=== PATIENT | female | born 2000 | race Caucasian/White ===

== ENCOUNTER 2020-09-12 06:15 | Emergency (ER) | payer BC ==
[2020-09-12] MEDS ORDERED: Sodium Chloride 0.9% 1,000 ML IV SCH (06:30)
--- NOTE | 2020-09-12 06:42 | EDM.PDOC ---
<Roque Alanis - Last Filed: 09/12/20 07:34> ED HPI GENERAL MEDICAL PROBLEM - General Chief Complaint: Drug or Alcohol Abuse Stated Complaint: [facility] Time Seen by Provider: 09/12/20 06:20 Source of Information: Reports: Patient, EMS History Limitations: Reports: No Limitations - History of Present Illness INITIAL COMMENTS - FREE TEXT/NARRATIVE: Ms. Collado is a very pleasant 20-year-old woman who is now brought to the ED by EMS after falling unconscious after drinking excessive alcohol and snorting what she thought was cocaine. She states that she started drinking alcohol around 20:00 last night, ending around 5:00 this morning, and that she did 2 lines of what she thought was cocaine sometime around 4:00 to 4:30 this morning. She states that she and her boyfriend acquired the cocaine from a neighbor, and that while she has done cocaine in the past, she has not done cocaine acquired from this neighbor previously. Sometime around 5:00 this morning, the patient was found by her boyfriend to be unconscious. The boyfriend apparently performed bystander CPR for 1 to 2 minutes before EMS arrived. When they arrived, they found the patient to be agonally breathing with a thready pulse and pinpoint pupils. They gave her 2 mg of IV Narcan, after which the patient woke up. She has remained awake since. The patient denies knowingly ingesting any other substances besides alcohol and cocaine. Here in the ED, the patient's initial BP is found to be slightly elevated 130/99, with tachycardia of 114 bpm. She is afebrile, saturating 99% on room air. The patient states that she vomited Sunday morning, 09/10/2020, that she believes was due to a hangover. Prior to Sunday, however, the patient denies having a recent fever, chills, sore throat, ear pain, nasal or sinus congestion, cough, dyspnea, chest pain, palpitations, nausea, vomiting, constipation, diarrhea, abdominal pain, urinary symptoms, recent weight gain or weight loss, recent bloody bowel movements or black bowel movements, recent joint aches, headaches, or rashes. The patient does not have a PCP. She states that she has already received an influenza vaccine this season. Back Pain Score (Numeric/FACES): 3 - Related Data Allergies Allergy/AdvReac Type Severity Reaction Status Date / Time tide. Allergy Rash Uncoded 09/12/20 06:23 Home Meds: Home Meds Iud. 09/12/20 [History] Past Medical History Musculoskeletal History: Reports: Back Pain, Chronic (scoliosis) Endocrine/Metabolic History: Reports: Obesity/BMI 30+ - Past Surgical History HEENT Surgical History: Reports: Oral Surgery (dental extractions) Social & Family History - Tobacco Use Tobacco Use Status *Q: Never Tobacco User Tobacco Use Within Last Twelve Months: Vaping (Vapes nicotine x 2019) - Alcohol Use Alcohol Use History: Yes Alcohol Use Frequency: Socially (to excess on occasion) - Recreational Drug Use Recreational Drug Use: Yes Drug Use in Last 12 Months: Yes Recreational Drug Type: Reports: Cocaine (snorts rarely), Marijuana/Hashish (last Feb 2020) - Living Situation & Occupation Living situation: Reports: Single, with Significant Other (Boyfriend) 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 ED EXAM, GENERAL - Physical Exam Exam: See Below Exam Limited By: No Limitations General Appearance: Alert, WD/WN, No Apparent Distress Eye Exam: Bilateral Eye: EOMI, Normal Inspection Ears: Normal External Exam, Hearing Grossly Normal Nose: Normal Inspection Throat/Mouth: Normal Inspection, Normal Lips, Normal Voice, No Airway Compromise Head: Atraumatic, Normocephalic Neck: Normal Inspection, Full Range of Motion Respiratory/Chest: No Respiratory Distress, Lungs Clear, Normal Breath Sounds, No Accessory Muscle Use Cardiovascular: Normal Peripheral Pulses, No Edema, No Gallop, No JVD, No Murmur, No Rub, Tachycardia (regular) Peripheral Pulses: 3+: Radial (L), Radial (R) GI/Abdominal: Normal Bowel Sounds, Soft, Non-Tender, No Organomegaly, No Distention, No Abnormal Bruit, No Mass Back Exam: Normal Inspection, Full Range of Motion, NT Extremities: Normal Inspection, Normal Range of Motion, No Pedal Edema, Normal Capillary Refill Neurological: Alert, Oriented, Normal Cognition, No Motor/Sensory Deficits Psychiatric: Normal Affect Skin Exam: Warm, Dry, Intact, Normal Color, No Rash #1 Interpretation EKG Date: 09/12/20 Time: 06:21 Rhythm: Other (Sinus tachycardia) Rate (Beats/Min): 110 [place]: Normal P-Wave: Present QRS: Normal ST-T: Normal QT: Normal Comparison: NA - No Prior EKG Course - Re-Assessments/Exams Free Text/Narrative Re-Assessment/Exam: 09/12/20 06:37 As above, the patient states that she drank excessively last night, then did a couple of lines of what she thought was cocaine between 4:00 and 4:30 this morning, after which she was found unresponsive with agonal breaths, thready pulse, and pinpoint pupils. Her boyfriend performed bystander CPR for 1 to 2 minutes prior to EMS arrival. EMS gave the patient 2 mg of IV Narcan, after which she woke up, and remained awake. The presumption by EMS was that the cocaine that she snorted was laced with fentanyl. At this time, she is fully awake, cooperative, and was able to answer all of my questions without any difficulty. She has no complaints, and her physical exam is unremarkable. I have ordered a work-up that includes numerous blood tests, a urine drug screen, a urine test, a chest x-ray, and an ECG. In the meantime, she will be given some IV fluid. I would like to keep her n.p.o. presently. 09/12/20 07:26 Two-view chest radiograph appears to be grossly normal. The cardiac silhouette is within normal limits. No pulmonary vascular congestion. No pleural effusions. No focal infiltrate. No pneumothorax. Formal read per the Radiologist pending. The patient's CMP is remarkable for an anion gap slightly elevated at 16.5, but with a bicarbonate normal at 25. She has hyperglycemia of 154, with the remainder of her CMP being unremarkable. Her magnesium level is within normal limits at 2.1. Her troponin is undetectably low. Her acetaminophen level is 0. Her salicylate level is within normal limits at 1.1. Her EtOH level is elevated at 0.11. The CBC has not yet resulted. A urine sample for the urine drug screen and urine test has not yet been collected. Case discussed with Dr. Crow, and care of the patient turned over to him at this time, for change of shift. Departure - Departure Disposition: Home, Self-Care 01 Clinical Impression: Alcohol intoxication Qualifiers: Complication of substance-induced condition: uncomplicated Qualified Code(s): F10.920 - Alcohol use, unspecified with intoxication, uncomplicated Opiate or related narcotic overdose Qualifiers: Encounter type: initial encounter Injury intent: accidental or unintentional Qualified Code(s): T40.601A - Poisoning by unspecified narcotics, accidental (unintentional), initial encounter - Discharge Information Instructions: Alcohol Intoxication, Opioid Overdose Referrals: PCP,None [Primary Care Provider] - Forms: ED Department Discharge Additional Instructions: Evaluation in the emergency room this morning in regards to ingesting a substance which you apparently thought was cocaine but it clearly contained a narcotic most likely fentanyl. This produced sudden respiratory arrest and you required CPR as seen by devyn. Narcan given by police/paramedics reverse the narcotic effect on depression your respiratory system to breathe. You were brought to the ED per ambulance. Treated with IV fluids and monitored over the next few hours to make sure there was no recurrence of respiratory depression symptoms. You received IV fluids to act as a flush and support blood pressure while in the emergency room. Sepsis Event Note (ED) - Evaluation Sepsis Screening Result: No Definite Risk <Parmjit Crow - Last Filed: 09/12/20 09:04> Course - Vital Signs Last Recorded V/S: Last Vital Signs Temp 36.2 C 09/12/20 06:23 Pulse 102 H 09/12/20 07:20 Resp 16 09/12/20 07:20 BP 139/82 09/12/20 07:20 Pulse Ox 98 09/12/20 07:20 - Orders/Labs/Meds Orders: Active Orders 24 hr Category Date Time Status EKG Documentation Completion [RC] STAT Care 09/12/20 06:22 Active Chest 2V [CR] Stat Exams 09/12/20 06:21 Taken Sodium Chloride 0.9% [Normal Saline] 1,000 ml Med 09/12/20 06:30 Active IV ASDIRECTED Medication Orders Sodium Chloride (Normal Saline) 1,000 mls @ 150 mls/hr IV ASDIRECTED HENRY Last Infusion: 09/12/20 08:24 Dose: 999 mls/hr Documented by: Admin: 09/12/20 06:30 Dose: 150 mls/hr Documented by: AMINATA Labs: Laboratory Tests 09/12/20 09/12/20 09/12/20 Range/Units 06:25 06:25 06:25 WBC 7.27 (3.98-10.04) K/mm3 RBC 5.27 H (3.98-5.22) M/mm3 Hgb 14.7 (11.2-15.7) gm/dl Hct 44.9 (34.1-44.9) % MCV 85.2 (79.4-94.8) fl MCH 27.9 (25.6-32.2) pg MCHC 32.7 (32.2-35.5) g/dl RDW Std Deviation 39.7 (36.4-46.3) fL Plt Count 307 (182-369) K/mm3 MPV 10.0 (9.4-12.3) fl Neutrophils % (Manual) 65 H (40-60) % Band Neutrophils % 0 (0-10) % Lymphocytes % (Manual) 33 (20-40) % Atypical Lymphs % 0 % Monocytes % (Manual) 0 L (2-10) % Eosinophils % (Manual) 1 (0.7-5.8) % Basophils % (Manual) 1 (0.1-1.2) Platelet Estimate Adequate RBC Morph Comment Normal Sodium 144 (136-145) mEq/L Potassium 3.5 (3.5-5.1) mEq/L Chloride 106 (98-107) mEq/L Carbon Dioxide 25 (21-32) mEq/L Anion Gap 16.5 H (5-15) BUN 8 (7-18) mg/dL Creatinine 1.0 (0.55-1.02) mg/dL Est Cr Clr Drug Dosing 82.61 mL/min Estimated GFR (MDRD) > 60 (>60) mL/min BUN/Creatinine Ratio 8.0 L (14-18) Glucose 154 H (74-106) mg/dL Calcium 8.8 (8.5-10.1) mg/dL Magnesium 2.1 (1.8-2.4) mg/dl Total Bilirubin 0.2 (0.2-1.0) mg/dL AST 23 (15-37) U/L ALT 58 (14-59) U/L Alkaline Phosphatase 79 (46-116) U/L Troponin I < 0.017 (0.00-0.056) ng/mL Total Protein 8.3 H (6.4-8.2) g/dl Albumin 4.3 (3.4-5.0) g/dl Globulin 4.0 gm/dL Albumin/Globulin Ratio 1.1 (1-2) Urine HCG, Qual (NEGATIVE) Salicylates 1.1 L (2.8-20) mg/dL Urine Opiates Screen (PCBTON=751) Ur Buprenorphine Scrn (CUTOFF=10) Ur Oxycodone Screen (QCI1AD=165) Urine Methadone Screen (DEXRUM=139) Ur Propoxyphene Screen (CJUGWE=348) Acetaminophen 0 L (10-30) ug/mL Ur Barbiturates Screen (GROWLW=583) Ur Tricyclics Screen (NGAMTB=625) Ur Phencyclidine Scrn (CUTOFF=25) Ur Amphetamine Screen (HYREKC=903) U Methamphetamines Scrn (BOBUDS=513) U Benzodiazepines Scrn (BOQMWW=925) U Cocaine Metab Screen (HTOIIU=569) U Marijuana (THC) Screen (CUTOFF=50) Ethyl Alcohol 0.11 (0.00) gm% 09/12/20 09/12/20 Range/Units 07:30 07:30 WBC (3.98-10.04) K/mm3 RBC (3.98-5.22) M/mm3 Hgb (11.2-15.7) gm/dl Hct (34.1-44.9) % MCV (79.4-94.8) fl MCH (25.6-32.2) pg MCHC (32.2-35.5) g/dl RDW Std Deviation (36.4-46.3) fL Plt Count (182-369) K/mm3 MPV (9.4-12.3) fl Neutrophils % (Manual) (40-60) % Band Neutrophils % (0-10) % Lymphocytes % (Manual) (20-40) % Atypical Lymphs % % Monocytes % (Manual) (2-10) % Eosinophils % (Manual) (0.7-5.8) % Basophils % (Manual) (0.1-1.2) Platelet Estimate RBC Morph Comment Sodium (136-145) mEq/L Potassium (3.5-5.1) mEq/L Chloride (98-107) mEq/L Carbon Dioxide (21-32) mEq/L Anion Gap (5-15) BUN (7-18) mg/dL Creatinine (0.55-1.02) mg/dL Est Cr Clr Drug Dosing mL/min Estimated GFR (MDRD) (>60) mL/min BUN/Creatinine Ratio (14-18) Glucose (74-106) mg/dL Calcium (8.5-10.1) mg/dL Magnesium (1.8-2.4) mg/dl Total Bilirubin (0.2-1.0) mg/dL AST (15-37) U/L ALT (14-59) U/L Alkaline Phosphatase (46-116) U/L Troponin I (0.00-0.056) ng/mL Total Protein (6.4-8.2) g/dl Albumin (3.4-5.0) g/dl Globulin gm/dL Albumin/Globulin Ratio (1-2) Urine HCG, Qual Negative (NEGATIVE) Salicylates (2.8-20) mg/dL Urine Opiates Screen Negative (EVIRJM=870) Ur Buprenorphine Scrn Negative (CUTOFF=10) Ur Oxycodone Screen Negative (NHJ1KW=839) Urine Methadone Screen Negative (SHBFJN=244) Ur Propoxyphene Screen Negative (HAFZOH=072) Acetaminophen (10-30) ug/mL Ur Barbiturates Screen Negative (FLPCUW=922) Ur Tricyclics Screen Negative (SJVALB=004) Ur Phencyclidine Scrn Negative (CUTOFF=25) Ur Amphetamine Screen Negative (QOKJVS=365) U Methamphetamines Scrn Negative (GXQHCX=833) U Benzodiazepines Scrn Negative (AZRRPY=984) U Cocaine Metab Screen Presumptive positive H (HZQJCS=625) U Marijuana (THC) Screen Negative (CUTOFF=50) Ethyl Alcohol (0.00) gm% Meds: Medications Generic Name Dose Route Start Last Admin Trade Name Freq PRN Reason Stop Dose Admin Sodium Chloride 1,000 mls @ 150 mls/hr 09/12/20 06:30 09/12/20 08:24 Normal Saline IV 999 mls/hr ASDIRECTED HENRY Infusion - Re-Assessments/Exams Free Text/Narrative Re-Assessment/Exam: 09/12/20 07:[address] Alanis at change of shift. 2 view chest x-ray reviewed and it is within normal limits. No pulmonary infiltrate normal cardiac silhouette.No fractured ribs identified. Hematology reveals a normal white count at 7.27. Differential shows 65% neutrophils. Hemoglobin is 14.7 with hematocrit of 44.9 platelet count 307,000. Sodium 144 with a potassium of 3.5. Chloride 106 with a bicarb of 25. Anion gap is 16.5. BUN is 8 with a creatinine of 1.0 GFR is greater than 60. Glucose mildly elevated 154. Calcium 8.8 with a magnesium of 2.1 liver function otherwise normal troponin I is less than 0.017. Total protein 8.3 albumin fraction is 4.3. Beta hCG qualitative is negative. Salicylates are 1.1 and acetaminophen is 0 blood alcohol was 0.11 09/12/20 08:22 Urine drug screen is now back. Salicylate level was 1.1. Acetaminophen level was 0. The drug screen is positive presumptively for cocaine metabolite with no opioids identified. 09/12/20 08:45 is alert oriented and answers all questions appropriately. Complaining of some diffuse mid back pain but no chest pain. She will be discharged to home Departure - Departure Time of Disposition: 08:44 Condition: Fair - Discharge Information *PRESCRIPTION DRUG MONITORING PROGRAM REVIEWED*: No *COPY OF PRESCRIPTION DRUG MONITORING REPORT IN PATIENT SLIM: No Sepsis Event Note (ED) - Focused Exam Vital Signs: Vital Signs Temp Pulse Resp BP Pulse Ox 09/12/20 07:20 102 H 16 139/82 98 09/12/20 06:23 36.2 C 114 H 16 130/99 H 99
[2020-09-12 07:03] LABS: ACETAMINOPHEN 0 ug/mL (10-30)
--- NOTE | 2020-09-13 08:29 | CR ---
Chest: 2 views of the chest were obtained. Comparison: No prior chest imaging is available. Heart size and mediastinum are normal. Lungs are clear with no acute parenchymal change. Bony structures are unremarkable. Impression: 1. Nothing acute is seen on 2 view chest x-ray. Diagnostic code #1
== END 2020-09-12 09:05 | disposition home or self-care (01) ==
LOC: JD.ED 06:15
DX: T40.5X1A Poisoning by cocaine, accidental (unintentional), initial encounter (principal); F10.120 Alcohol abuse with intoxication, uncomplicated; Y90.5 Blood alcohol level of 100-119 mg/100 ml; Z87.891 Personal history of nicotine dependence
CPT/HCPCS: 36415; 71046; 80053; 80143; 80179; 80306; 80307; 81025; 83735; 84484; 85007; 85027; 93005; 99285; J7030; 93010